=== PATIENT | female | born 1990 | race Caucasian/White ===

== ENCOUNTER 2018-01-21 14:08 | Emergency (ER) | payer OTHER ==
[2018-01-21 14:16] VITALS: BMI 28.8
[2018-01-21 15:24] LABS: BASO % 0.3 % (0-2.0); EOS % 1.7 % (0-4.5); HEMATOCRIT 36.9 % (32.4-45.2); HEMOGLOBIN 12.6 GM/dL (10.7-15.3); LYMPH % 13.2 % (8-40); MCH 31.2 pg (25.7-33.7); MEAN CELL VOLUME 91.8 fl (80-96); MEAN PLT VOLUME 9.3 fl (7.5-11.1); MONO % 6.1 % (3.8-10.2); NEUT % 78.7 % (42.8-82.8); PLATELET COUNT 239 K/MM3 (134-434); RBC 4.02 M/mm3 (3.60-5.2); RDW 12.6 % (11.6-15.6); WHITE BLOOD COUNT 12.5 K/mm3 (4.0-10.0)
[2018-01-21 15:32] LABS: HCG,QUALITATIVE URINE POSITIVE; URINE APPEARANCE CLEAR; URINE BILIRUBIN NEGATIVE (NEGATIVE); URINE BLOOD NEGATIVE (NEGATIVE); URINE COLOR YELLOW; URINE GLUCOSE (UA) NEGATIVE (NEGATIVE); URINE KETONE NEGATIVE (NEGATIVE); URINE LEUK ESTERASE TRACE (NEGATIVE); URINE NITRITE NEGATIVE (NEGATIVE); URINE PROTEIN NEGATIVE (NEGATIVE); URINE UROBILINOGEN NEGATIVE mg/dL (0.2-1.0)
[2018-01-21 15:37] LABS: EPI CELLS RARE /HPF (FEW); URINE BACTERIA RARE /hpf (NONE SEEN); URINE MUCUS MANY
[2018-01-21 15:57] LABS: ALBUMIN 3.6 g/dl (3.4-5.0); ANION GAP 10 (8-16); BILIRUBIN,TOTAL 0.4 mg/dL (0.2-1.0); BLOOD UREA NITROGEN 7 mg/dL (7-18); CALCIUM 9.3 mg/dL (8.5-10.1); CHLORIDE 102 mmol/L (98-107); CO2 24 mmol/L (21-32); CREATININE 0.5 mg/dL (0.55-1.02); GLUCOSE,RANDOM 73 mg/dL (74-106); POTASSIUM 3.8 mmol/L (3.5-5.1); SGOT/AST 20 U/L (15-37); SGPT/ALT 26 U/L (12-78); SODIUM 136 mmol/L (136-145); TOT PROT 7.8 g/dl (6.4-8.2)
[2018-01-21 15:58] LABS: ALK PHOS 47 U/L (45-117)
--- NOTE | 2018-01-21 15:58 | PDOC ---
History of Present Illness - General Chief Complaint: Pain, Acute Stated Complaint: ABD PAIN Time Seen by Provider: 01/21/18 14:59 History Source: Patient Exam Limitations: No Limitations - History of Present Illness Initial Comments: 01/21/18 15:54 CHIEF COMPLAINT: Abdominal pain HISTORY OF PRESENT ILLNESS: This is an otherwise healthy 27-year-old female presents for evaluation of bilateral lower abdominal pain today. The pain is intermittent. She has some mild constipation (was able to have a bowel movement today, but "harder" than usual was (. She denies dysuria, hematuria, or abnormal vaginal discharge. She denies nausea or vomiting. She denies fevers/ chills. She has not yet taken anything for this pain. Vital signs on arrival are notable for pulse of 98. REVIEW OF SYSTEMS: GENERAL/CONSTITUTIONAL: No fever or chills. No weakness. No weight change. HEAD, EYES, EARS, NOSE AND THROAT: No change in vision. No ear pain or discharge. No sore throat. CARDIOVASCULAR: No chest pain or palpitations. RESPIRATORY: No cough, wheezing, or shortness of breath. GASTROINTESTINAL: See HPI. GENITOURINARY: No dysuria, frequency, or change in urination. MUSCULOSKELETAL: No joint or muscle swelling or pain. No neck or back pain. SKIN: No rash or easy bruising. NEUROLOGIC: No headache, vertigo, loss of consciousness, or loss of sensation. PSYCHIATRIC: No depression or anxiety. ENDOCRINE: No increased thirst. No abnormal weight change. HEMATOLOGIC/LYMPHATIC: No anemia, easy bleeding, or history of blood clots. ALLERGIC/IMMUNOLOGIC: No hives or skin allergy. No latex allergy. PHYSICAL EXAM: GENERAL: The patient is awake, alert, and fully oriented, in no acute distress. HEAD: Normal with no signs of trauma. ENT: Pupils equal, round and reactive to light, extraocular movements intact, sclera anicteric, conjunctiva clear. Neck supple. LUNGS: Clear to auscultation bilaterally. Normal excursion. No respiratory distress or use of accessory muscles. CV: RRR, S1/S2, no MRG. Cap refill < 2 sec. ABDOMEN: Soft, non-distended, no focal tenderness. EXTREMITIES: Normal range of motion, no edema. NEUROLOGICAL: Normal speech, normal gait. CN II-XII grossly intact. PSYCH: Normal mood, normal affect. SKIN: Warm, dry, normal turgor, no rashes or lesions noted. Past History - Past Medical History Allergies/Adverse Reactions: Allergies Allergy/AdvReac Type Severity Reaction Status Date / Time No Known Allergies Allergy Verified 01/21/18 14:13 Home Medications: Ambulatory Orders Pnv,Calcium 72/Iron/Folic Acid [ Plus Tablet] 1 each PO DAILY #30 tablet 01/21/18 COPD: No Other medical history: DENIES. - Suicide/Smoking/Psychosocial Hx Smoking History: Never smoked Information on smoking cessation initiated: No *Physical Exam - Vital Signs Last Vital Signs Temp Pulse Resp BP Pulse Ox 98.2 F 98 H 16 119/81 99 01/21/18 14:13 01/21/18 14:13 01/21/18 14:13 01/21/18 14:13 01/21/18 14:13 ED Treatment Course - LABORATORY CBC & Chemistry Diagram: 01/21/18 15:06 01/21/18 15:06 - ADDITIONAL ORDERS Additional order review: Laboratory Results 01/21/18 15:15 Urine Color Yellow Urine Appearance Clear Urine pH 5.0 Ur Specific [place] 1.024 Urine Protein Negative Urine Glucose (UA) Negative Urine Ketones Negative Urine Blood Negative Urine Nitrite Negative Urine Bilirubin Negative Urine Urobilinogen Negative Ur Leukocyte Esterase Trace Urine WBC (Auto) 1 Urine RBC (Auto) 1 Ur Epithelial Cells Rare Urine Bacteria Rare Urine Mucus Many Urine HCG, Qual Positive 01/21/18 15:06 RBC 4.02 MCV 91.8 MCHC 34.0 RDW 12.6 MPV 9.3 Neutrophils % 78.7 Lymphocytes % 13.2 Monocytes % 6.1 Eosinophils % 1.7 Basophils % 0.3 - RADIOLOGY Radiology Studies Ordered: Category Date Time Status <14WKS US [US] Stat Ultrasound 01/21/18 15:49 Ordered Medical Decision Making - Medical Decision Making 01/21/18 15:56 A/P: 27 year old female with lower abdominal pain. 1. UA/culture, urine 2. CBC, CMP Urine is positive. Will send beta hcg, obtain u/s to confirm IUP. WBC 12.5. 01/21/18 18:04 U/s: 22 wk IUP, HR 176. Will transfer to L&D for evaluation. *DC/Admit/Observation/Transfer Diagnosis at time of Disposition: Abdominal pain affecting - Discharge Dispostion Condition at time of disposition: Guarded - Prescriptions Prescriptions: Pnv,Calcium 72/Iron/Folic Acid [ Plus Tablet] 1 each PO DAILY #30 tablet - Referrals Referrals: Jeri Nix MD [Staff Physician] - - Patient Instructions - Post Discharge Activity
[2018-01-21 18:52] VITALS: BP 105/60; PULSE 74; TEMP 98.3
== END 2018-01-21 19:22 | disposition home or self-care (01) ==
LOC: JER 14:08
DX: O26.892 Other specified pregnancy related conditions, second trimester (principal); R10.30 Lower abdominal pain, unspecified; Z3A.22 22 weeks gestation of pregnancy
CPT/HCPCS: 36415; 76815-TC; 80053; 81003; 81015; 84702; 84703; 85025; 87086; 99282-25

== ENCOUNTER 2018-05-30 09:05 | Inpatient (IN) | payer OTHER ==
[2018-05-30] MEDS ORDERED: DEXTROSE 5%-LACTATED RINGERS 1,000 ML IV SCH (09:40)
[2018-05-30] MEDS ORDERED: AMPICILLIN SODIUM 2 GM VIAL ONE (10:18)
[2018-05-30] MEDS ORDERED: AMPICILLIN - 2 GM in SODIUM CHLORIDE 100 ML IVPB ONE (10:30)
[2018-05-30 10:36] VITALS: BMI 30.7
[2018-05-30 10:41] LABS: BASO % 0.1 % (0-2.0); EOS % 1.2 % (0-4.5); HEMATOCRIT 37.5 % (32.4-45.2); HEMOGLOBIN 12.9 GM/dL (10.7-15.3); LYMPH % 15.9 % (8-40); MCH 30.9 pg (25.7-33.7); MCHC 34.3 g/dl (32.0-36.0); MEAN CELL VOLUME 90.1 fl (80-96); MEAN PLT VOLUME 10.4 fl (7.5-11.1); MONO % 8.3 % (3.8-10.2); NEUT % 74.5 % (42.8-82.8); PLATELET COUNT 128 K/MM3 (134-434); RBC 4.16 M/mm3 (3.60-5.2); RDW 14.2 % (11.6-15.6); WHITE BLOOD COUNT 9.4 K/mm3 (4.0-10.0)
[2018-05-30 10:54] LABS: INR 0.96 (0.82-1.09); PROTHROMBIN TIME (PATIENT) 10.9 SEC (9.7-13.0)
[2018-05-30 10:57] LABS: ACTIVATED PTT 28.5 SECONDS (25.2-36.5)
[2018-05-30] MEDS ORDERED: OXYTOCIN 30 UNITS in 0.9% NS 30 UNIT/500 ML INFUS.BAG IVPB SCH (11:15)
--- NOTE | 2018-05-30 11:17 | HP ---
Past Medical History - Admission Chief Complaint: Labor pain History of Present Illness: 27 yo , @ 40.5 weeks gestation, had an appointment for NST but stated to experience contractions pain. Upon admission she was 4cm dilated. History Source: Patient Limitations to Obtaining History: No Limitations - Past Medical History ...: 1 ...Para: 0 ...Term: 0 ...: 0 ...Spon : 0 ...Induced : 0 ...Multiple Gestation: 0 ...EDC by [facility]: 05/25/18 - Past Surgical History Past Surgical History: Yes: None Hx Myomectomy: No Hx Transabdominal Cerclage: No - Smoking History Smoking history: Never smoked Have you smoked in the past 12 months: No - Alcohol/Substance Use Hx Alcohol Use: No History of Substance Use: reports: None - Social History Usual Living Arrangement: Yes: With Significant Other History of Recent Travel: No Home Medications - Allergies Allergies/Adverse Reactions: Allergies Allergy/AdvReac Type Severity Reaction Status Date / Time No Known Allergies Allergy Verified 05/30/18 10:05 - Home Medications Home Medications: Ambulatory Orders Ferrous Sulfate [Feosol] 325 mg PO DAILY 05/30/18 Vit Calc,Iron,Folic [ Vitamins] 1 each PO DAILY 05/30/18 Family Disease History - Family Disease History Family History: Unremarkable Review of Systems - Review of Systems Constitutional: reports: No Symptoms Eyes: reports: No Symptoms HENT: reports: No Symptoms Neck: reports: No Symptoms Cardiovascular: reports: No Symptoms Respiratory: reports: No Symptoms Gastrointestinal: reports: No Symptoms Genitourinary: reports: Pain Breasts: reports: No Symptoms Reported Musculoskeletal: reports: No Symptoms Integumentary: reports: No Symptoms Neurological: reports: No Symptoms Endocrine: reports: No Symptoms Hematology/Lymphatic: reports: No Symptoms Psychiatric: reports: No Symptoms Pain Intensity: 6 Physical Exam - Maternity Vital Signs: Vital Signs Temperature 97.7 F 05/30/18 10:00 Pulse Rate 66 05/30/18 10:00 Respiratory Rate 05/30/18 10:00 Blood Pressure 116/83 05/30/18 10:00 O2 Sat by Pulse Oximetry (%) Constitutional: Yes: Well Nourished Eyes: Yes: Conjunctiva Clear HENT: Yes: Atraumatic Neck: Yes: Supple Cardiovascular: Yes: Regular Rate and Rhythm Lungs: Clear to auscultation - Abdominal Exam/OB Number of Fetuses: Single Presentation: Vertex - Vaginal Exam/OB Dilatation (cm): 4 Effacement (%): 80 Amniotic Membrane Status: Intact Presentation: Vertex/Position Station: -2 - Physical Exam Musculoskeletal: Yes: WNL Extremities: Yes: WNL ...Motor Strength: WNL Psychiatric: Yes: Alert, Oriented - Labs Lab Results: CBC, BMP 05/30/18 10:20 Problem List - Problems (1) 40 weeks gestation of Code(s): Z3A.40 - 40 WEEKS GESTATION OF Assessment/Plan 40 weeks gestation Labor pain Admit to L&D GBS prophylaxis Anticipate
[2018-05-30 11:19] LABS: ANION GAP 11 (8-16); BLOOD UREA NITROGEN 7 mg/dL (7-18); CALCIUM 8.9 mg/dL (8.5-10.1); CHLORIDE 109 mmol/L (98-107); CO2 21 mmol/L (21-32); CREATININE 0.6 mg/dL (0.55-1.02); GLUCOSE,RANDOM 76 mg/dL (74-106); POTASSIUM 3.9 mmol/L (3.5-5.1); SODIUM 141 mmol/L (136-145)
[2018-05-30] MEDS ORDERED: OXYTOCIN 30 UNITS in 0.9% NS 30 UNIT/500 ML INFUS.BAG IVPB ONE (12:31)
[2018-05-30] MEDS ORDERED: PROMETHAZINE HCL 25 MG/1 ML VIAL IVPB ONE (12:45)
[2018-05-30] MEDS ORDERED: BUTORPHANOL TARTRATE 1 MG/ML VIAL IVPB ONE (12:45)
[2018-05-30] MEDS ORDERED: BUTORPHANOL TARTRATE 1 MG/ML VIAL ONE ×2 (12:48)
[2018-05-30] MEDS ORDERED: PROMETHAZINE HCL 25 MG/1 ML VIAL ONE (12:49)
[2018-05-30] MEDS: ELECTROLYTE-148 SOLN 1,000 ML IV SCH ×2 (14:30→18:32)
[2018-05-30] MEDS: AMPICILLIN - 1 GM in SODIUM CHLORIDE 100 ML IVPB SCH ×3 (14:30→22:17)
[2018-05-30] MEDS ORDERED: BUPIVACAINE HCL/PF 0.25% (2.5MG/ML) 10 ML VIAL ONE (14:37)
[2018-05-30] MEDS ORDERED: FENTANYL/BUPIVACAINE/NS/PF - PCEA - 50 ML DISP.SYRIN EP ONE ×3 (14:38→23:34)
[2018-05-30] MEDS ORDERED: FENTANYL/BUPIVACAINE/NS/PF - PCEA - 50 ML DISP.SYRIN EP SCH (14:50)
[2018-05-30] MEDS ORDERED: NALOXONE HCL 0.4 MG/ML VIAL IVPUSH PRN (15:25)
[2018-05-30] MEDS ORDERED: AMPICILLIN SODIUM 1 GM VIAL ONE (22:10)
[2018-05-31] MEDS ORDERED: AMPICILLIN SODIUM 1 GM VIAL ONE (02:14)
[2018-05-31] MEDS: AMPICILLIN - 1 GM in SODIUM CHLORIDE 100 ML IVPB SCH (02:30)
[2018-05-31] MEDS ORDERED: OXYTOCIN 20 UNITS in 0.9% NS 20 UNIT/1,000 ML INFUS.BAG IV ONE ×2 (03:20→07:14)
[2018-05-31] MEDS ORDERED: WITCH HAZEL 50% (TUCKS) 40 PAD/JAR PAD TP PRN (04:53)
[2018-05-31] MEDS ORDERED: BENZOCAINE 28 GM HEMORRHOIDAL OINTMENT TP PRN (04:53)
[2018-05-31] MEDS ORDERED: METHYLERGONOVINE MALEATE 0.2 MG/1 ML AMP IM PRN (04:53)
[2018-05-31] MEDS ORDERED: BISACODYL 10 MG SUPP.RECT RC PRN (04:53)
[2018-05-31] MEDS ORDERED: BENZOCAINE 20% 57 GM BOTTLE TP PRN (04:53)
--- NOTE | 2018-05-31 04:57 | PN ---
Delivery - Delivery Vaginal Delivery: Spontaneous Type of Anesthesia: Epidural Episiotomy/Laceration: 3rd degree EBL (cc): 300 Delivery, Single - [place] Feeding Plan Initial Plan: Exclusive throughout hospitalization Remarks - Remarks Remarks: Normal spontaneous vaginal delivery of a live boy over 3rd degree laceration. Nose / Oropharynx suctioned @ perineum. Cord clamped and cut. Placenta expelled spontaneously intact. Laceration repaired with 2.0 Chromic.
[2018-05-31] MEDS ORDERED: OXYTOCIN 20 UNITS in 0.9% NS 20 UNIT/1,000 ML INFUS.BAG IV SCH (05:00)
[2018-05-31] MEDS ORDERED: ACETAMINOPHEN 325 MG TABLET (FP) ONE (06:03)
[2018-05-31] MEDS ORDERED: IBUPROFEN 600 MG TABLET (FP) PO ONE (06:03)
[2018-05-31] MEDS: ACETAMINOPHEN 325 MG TABLET (FP) PO PRN ×2 (06:30→21:20)
[2018-05-31] MEDS: IBUPROFEN 600 MG TABLET (FP) PO PRN ×2 (06:30→21:20)
[2018-05-31] MEDS: PRENATAL VITAMINS W/ FOLIC ACID TABLET (FP) PO SCH (10:03)
[2018-05-31] MEDS: FERROUS SO4 325 MG TABLET (FP) PO SCH ×2 (10:03→21:20)
[2018-05-31] MEDS ORDERED: AMPICILLIN - 1 GM in SODIUM CHLORIDE 100 ML IVPB SCH (11:30)
--- NOTE | 2018-06-01 07:46 | PN ---
Post Progress Note - Subjective Subjective: 27 yo Para 1 status post normal vaginal delivery, seen and evaluated. Doing well. Post Day: 1 Type of Delivery: Vital Signs: Vital Signs Temperature 98 F 06/01/18 02:00 Pulse Rate 68 06/01/18 02:00 Respiratory Rate 20 06/01/18 02:00 Blood Pressure 106/65 06/01/18 02:00 O2 Sat by Pulse Oximetry (%) 99 05/31/18 07:15 Breast Exam: Yes: Soft Uterus: Yes: Fundus Firm Abdomen/GI: Yes: Abdomen soft, Tolerating PO Lochia: Yes: Rubra Lochia, amount: Moderate Extremities: Yes: Calves non-tender Perineum: Yes: Laceration (Healing) Activity: Ambulating - Labs Labs: CBC WBC 9.4 K/mm3 (4.0-10.0) 05/30/18 10:20 RBC 4.16 M/mm3 (3.60-5.2) 05/30/18 10:20 Hgb 12.9 GM/dL (10.7-15.3) 05/30/18 10:20 Hct 37.5 % (32.4-45.2) 05/30/18 10:20 MCV 90.1 fl (80-96) 05/30/18 10:20 MCH 30.9 pg (25.7-33.7) 05/30/18 10:20 MCHC 34.3 g/dl (32.0-36.0) 05/30/18 10:20 RDW 14.2 % (11.6-15.6) D 05/30/18 10:20 Plt Count 128 K/MM3 (134-434) L D 05/30/18 10:20 MPV 10.4 fl (7.5-11.1) D 05/30/18 10:20 Absolute Neuts (auto) 7.0 # 05/30/18 10:20 Neutrophils % 74.5 % (42.8-82.8) 05/30/18 10:20 Lymphocytes % 15.9 % (8-40) D 05/30/18 10:20 Monocytes % 8.3 % (3.8-10.2) 05/30/18 10:20 Eosinophils % 1.2 % (0-4.5) 05/30/18 10:20 Basophils % 0.1 % (0-2.0) 05/30/18 10:20 Nucleated RBC % 0 % (0-0) 05/30/18 10:20 Problem List - Problems (1) 40 weeks gestation of Code(s): Z3A.40 - 40 WEEKS GESTATION OF (2) Status post normal vaginal delivery Code(s): OTB1148 - Assessment/Plan Status post normal vaginal delivery Stable Continue routine care.
[2018-06-01 08:00] LABS: BASO % 0.2 % (0-2.0); EOS % 0.9 % (0-4.5); HEMATOCRIT 29.9 % (32.4-45.2); HEMOGLOBIN 10.4 GM/dL (10.7-15.3); LYMPH % 13.3 % (8-40); MCH 31.3 pg (25.7-33.7); MCHC 34.7 g/dl (32.0-36.0); MEAN CELL VOLUME 90.3 fl (80-96); MEAN PLT VOLUME 10.1 fl (7.5-11.1); MONO % 5.9 % (3.8-10.2); NEUT % 79.7 % (42.8-82.8); PLATELET COUNT 116 K/MM3 (134-434); RBC 3.31 M/mm3 (3.60-5.2); RDW 14.4 % (11.6-15.6); WHITE BLOOD COUNT 13.4 K/mm3 (4.0-10.0)
[2018-06-01] MEDS: FERROUS SO4 325 MG TABLET (FP) PO SCH ×2 (09:35→21:57)
[2018-06-01] MEDS: PRENATAL VITAMINS W/ FOLIC ACID TABLET (FP) PO SCH (09:35)
[2018-06-01] MEDS ORDERED: DIPHTH,PERTUSS(ACELL),TET 0.5 ML DISP.SYRIN IM ONE (10:00)
[2018-06-01] MEDS: ACETAMINOPHEN 325 MG TABLET (FP) PO PRN (10:54)
[2018-06-01] MEDS: IBUPROFEN 600 MG TABLET (FP) PO PRN (10:55)
[2018-06-01] MEDS ORDERED: SENNOSIDES/DOCUSATE COMBO (SENNA PLUS) TABLET (UD) PO PRN (22:00)
[2018-06-02 08:26] VITALS: BP 124/80; PULSE 62; TEMP 98.1
[2018-06-02] MEDS: PRENATAL VITAMINS W/ FOLIC ACID TABLET (FP) PO SCH (09:37)
[2018-06-02] MEDS: FERROUS SO4 325 MG TABLET (FP) PO SCH (09:37)
--- NOTE | 2018-06-02 11:40 | DS ---
Physical Exam-SOUND PERSON Vital Signs: Vital Signs Temperature 98.1 F 06/02/18 07:50 Pulse Rate 62 06/02/18 07:50 Respiratory Rate 20 06/02/18 07:50 Blood Pressure 124/80 06/02/18 07:50 O2 Sat by Pulse Oximetry (%) 99 05/31/18 07:15 Constitutional: Yes: Well Nourished Eyes: Yes: Conjunctiva Clear HENT: Yes: Atraumatic Neck: Yes: Supple Cardiovascular: Yes: Regular Rate and Rhythm Respiratory: Yes: Regular Gastrointestinal: Yes: Normal Bowel Sounds External Genitalia: Yes: Normal Vaginal Exam: Yes: Normal Cervix: Yes: Normal Uterus: Yes: Firm ....Post : Yes: Uterus firm, Moderate lochia serosa Breast(s): Yes: WNL Musculoskeletal: Yes: WNL Extremities: Yes: WNL Neurological: Yes: Alert, Oriented ...Motor Strength: WNL Psychiatric: Yes: Alert, Oriented Labs: CBC, BMP 06/01/18 07:56 05/30/18 10:20 Delivery - Delivery Vaginal Delivery: Spontaneous Type of Anesthesia: Epidural Episiotomy/Laceration: 3rd degree EBL (cc): 300 Delivery, Single - Stages of Labor Date 1st Stage Initiatied: 05/30/18 Time 1st Stage Initiated: 04:00 Date 2nd Stage Initiated: 05/31/18 Time 2nd Stage Initiated: 03:20 Date of Delivery: 05/31/18 Time of Delivery: 04:34 Time Placenta Delivered: 04:40 - Condition of Gender: Male Weight: 8 lb 7 oz Position: OP Total Hours ROM (Hrs/Mins): 14h29m - 1 Minute Total Score: 7 5 Minutes Total Score: 9 - [place] Feeding Plan Initial Plan: Exclusive throughout hospitalization Discharge Summary Reason For Visit: LABOR Current Active Problems 40 weeks gestation of (Acute) Status post normal vaginal delivery (Acute) Procedures: Principal: Normal spontaneous vaginal delivery Hospital Course: Routine care Condition: Good - Instructions Diet, Activity, Other Instructions: Regular diet No douching, no sexual intercourse x 6 weeks. F/U in clinic in 6 weeks Disposition: HOME - Home Medications Comprehensive Discharge Medication List: Ambulatory Orders Ferrous Sulfate [Feosol] 325 mg PO DAILY 05/30/18 Vit Calc,Iron,Folic [ Vitamins] 1 each PO DAILY 05/30/18
== END 2018-06-02 12:25 | disposition home or self-care (01) | DRG 542 ==
LOC: JDEL 09:05 → JLDR 09:40 → J3W 05-31 07:17
PROVIDERS: ADMIT Obstetrics & Gynecology; ATTEND Obstetrics & Gynecology
PROC: 0DQR0ZZ Repair Anal Sphincter, Open Approach (ICD-10-PCS; principal; 2018-05-31)
PROC: 10E0XZZ Delivery of Products of Conception, External Approach (ICD-10-PCS; 2018-05-31)
DX: O48.0 Post-term pregnancy (principal); O70.20 Third degree perineal laceration during delivery, unspecified; Z3A.40 40 weeks gestation of pregnancy; Z37.0 Single live birth
CPT/HCPCS: 36415; 59409; 80048; 85025; 85610; 85730; 86593; 86850; 86900; 86901; 90715